=== PATIENT | male | born 1965 | race Caucasian/White ===

== ENCOUNTER 2018-09-29 18:31 | Emergency (ER) | payer SELFPAY ==
[2018-09-29 18:40] VITALS: BP 130/94
[2018-09-29] MEDS ORDERED: LIDOCAINE 4%/MENTHOL 1% PATCH TD ONE (18:45)
[2018-09-29] MEDS ORDERED: ACETAMINOPHEN 500 MG TAB PO ONE (18:45)
[2018-09-29] MEDS ORDERED: IBUPROFEN 600 MG TAB PO ONE (18:45)
--- NOTE | 2018-09-29 18:47 | EDPHY ---
H & P Time Seen by Provider: 09/29/18 18:34 HPI/ROS: CHIEF COMPLAINT: Back pain and I "don't feel well" HISTORY OF PRESENT ILLNESS: 52-year-old man has chronic back pain and a left leg amputation 1 and half years ago from a diabetic foot infection. Apparently he was kicked out of his house in [place] by his 4 days ago and started driving [place]. He was in [place] last night in a hotel room and then ran out of gas here. The patient said he was having increasing anxiety, he was looking at his phone and he could not focus on the phone, ended up calling 911 because he felt like he just did not feel well. Right now the patient's only medical complaint is that he has chronic back pain which is been present for several months. No recent injury, no fever or chills, no weakness or numbness in extremities, no incontinence. REVIEW OF SYSTEMS: Eye: No double vision , vision normal now. ENT: no sore throat Cardiac: no chest pain or syncope Pulmonary: no cough or SOB Abdomen: no vomiting, diarrhea, abdominal pain Musculoskeletal: Left below-knee amputation from diabetic foot infection, back pain as HPI Skin: no rash Neuro: no headache Constitutional: no fever : no urinary symptoms Denies suicidal or homicidal ideation or hallucinations. A comprehensive 10 point review of systems is otherwise negative aside from elements mentioned in the history of present illness. PAST MEDICAL HISTORY: Diabetes with left below-knee amputation. Social history: Smoker, denies alcohol or IV drugs. General Appearance: Alert and conversant, cooperative. Eyes: No scleral icterus. Pupils equal reactive extraocular motion intact. ENT, Mouth: Normal mucous membranes. Respiratory: Normal respiratory effort, breath sounds equal, lungs are clear to auscultation. Cardiovascular: Regular rate and rhythm. Gastrointestinal: Abdomen is soft and non tender. Neurological: Alert, face symmetric, patellar reflex present in the right foot , left below-knee amputation. Able to get up and move around the bed and cooperate with the examination. Skin: Warm and dry, no rashes. Musculoskeletal: Left below-knee amputation. Psychiatric: Patient denies SI or HI or hallucinations. Emergency Department course/MDM: Acetaminophen ibuprofen and lidocaine patch for his back. I do not have high suspicion for epidural abscess or spinal cord injury or fracture or cauda equina syndrome. He does not appear to have an acute emergent medical or surgical condition at this time. I think his blurry vision was more likely due to anxiety. Smoking Status: Current every day smoker Constitutional: Initial Vital Signs Temperature (C) 36.9 C 09/29/18 18:38 Heart Rate 81 09/29/18 18:38 Respiratory Rate 18 09/29/18 18:38 Blood Pressure 130/94 H 09/29/18 18:38 O2 Sat (%) 96 09/29/18 18:38 O2 Delivery Mode Room Air Allergies/Adverse Reactions: No Known Allergies Allergy (Unverified 09/29/18 18:40) Home Medications: Medication Instructions Recorded Vasyl 3-Jamaal 09/29/18 MDM/Departure - MDM Medications Given: Discontinued Medications Acetaminophen (Tylenol) 1,000 mg PO EDNOW ONE Stop: 09/29/18 18:46 Last Admin: 09/29/18 18:57 Dose: Not Given Ibuprofen (Motrin) 600 mg PO EDNOW ONE Stop: 09/29/18 18:46 Last Admin: 09/29/18 18:56 Dose: 600 mg Miscellaneous Medication (Icy Hot Lidocaine/Menthol 4%/1% Patch) 1 patch TD EDNOW ONE Stop: 09/29/18 18:46 Last Admin: 09/29/18 18:56 Dose: 1 patch - Depart Disposition: Home, Routine, Self-Care Clinical Impression: Back pain Qualifiers: Back pain location: low back pain Chronicity: unspecified Back pain laterality : bilateral Sciatica presence: without sciatica Qualified Code(s): M54.5 - Low back pain Condition: Good Instructions: Acute Low Back Pain (ED) Referrals: Nini England MD [Medical Doctor] - As per Instructions
[2018-09-29] MEDS ORDERED: PATCH REMOVAL 1 EA PATCH TD SCH (21:00)
== END 2018-09-29 19:21 | disposition home or self-care (01) ==
DX: M54.5 Low back pain (principal)